=== PATIENT | female | born 1960 | race Caucasian/White ===

== ENCOUNTER → 2017-09-16 | Outpatient (CLI) | payer OTHER ==
[~2017-09-16] MED LIST: Adipex-P37.5 M1 PO; Aspir 8181 MG PO
== END | disposition home or self-care (01) ==
LOC: PLD 13:47 → LAB SHORT 13:47
DX: L90.5 Scar conditions and fibrosis of skin (principal); L57.8 Other skin changes due to chronic exposure to nonionizing radiation
CPT/HCPCS: 88305

== ENCOUNTER 2021-04-18 09:08 | Day surgery (SDC) | payer OTHER ==
[~2021-04-18] VITALS: Ht 165.1 cm; Wt 87.4 kg
== END 2021-04-18 12:40 | disposition home or self-care (01) ==
LOC: ORSCSDS 09:08
PROVIDERS: Surgery
PROC: 0DBP8ZX Excision of Rectum, Via Natural or Artificial Opening Endoscopic, Diagnostic (ICD-10-PCS; principal; 2021-04-18 10:30)
PROC: 0DBL8ZX Excision of Transverse Colon, Via Natural or Artificial Opening Endoscopic, Diagnostic (ICD-10-PCS; principal; 2021-04-18 10:30)
DX: Z12.11 Encounter for screening for malignant neoplasm of colon (principal); Z86.010 Personal history of colon polyps; D12.3 Benign neoplasm of transverse colon; D12.8 Benign neoplasm of rectum; K64.8 Other hemorrhoids; Z87.891 Personal history of nicotine dependence; Z85.3 Personal history of malignant neoplasm of breast
CPT/HCPCS: 88305; A9270; J2704; J7040; J7120

== ENCOUNTER → 2021-05-13 | Outpatient (CLI) | payer OTHER | LOC: LAB 14:04 → LAB SHORT 14:04 | DX: D48.5 Neoplasm of uncertain behavior of skin (principal) | CPT/HCPCS: 88305 ==

== ENCOUNTER 2024-10-06 10:25 | Day surgery (SDC) | payer MEDICARE, OTHER ==
[~2024-10-06] VITALS: Ht 165.1 cm; Wt 86.3 kg
[~2024-10-06 10:25] MED LIST changes: +Lactated Ringer's 1,000 ML IV ONE; +propofoL 50 ML IV ONE
[2024-10-06] MEDS ORDERED: Lactated Ringer's 1,000 ML IV ONE ×2 (12:23→13:16)
[2024-10-06 13:54] VITALS: BP 108/74
== END 2024-10-06 13:54 | disposition home or self-care (01) ==
LOC: ORSCSDS 10:25
PROVIDERS: Internal Medicine Gastroenterology
PROC: 0DBL8ZX Excision of Transverse Colon, Via Natural or Artificial Opening Endoscopic, Diagnostic (ICD-10-PCS; principal; 2024-10-06 12:00)
PROC: 0DBM8ZX Excision of Descending Colon, Via Natural or Artificial Opening Endoscopic, Diagnostic (ICD-10-PCS; principal; 2024-10-06 12:00)
DX: R10.31 Right lower quadrant pain (principal); K64.4 Residual hemorrhoidal skin tags; D12.3 Benign neoplasm of transverse colon; D12.4 Benign neoplasm of descending colon; K58.9 Irritable bowel syndrome, unspecified; Z86.0101 Personal history of adenomatous and serrated colon polyps; K59.09 Other constipation; N18.31 Chronic kidney disease, stage 3a; J45.909 Unspecified asthma, uncomplicated; Z85.3 Personal history of malignant neoplasm of breast; Z87.891 Personal history of nicotine dependence
CPT/HCPCS: 88305; J2704; J7120